=== PATIENT | female | born 1980 | race Two or more races ===

== ENCOUNTER → 2018-11-17 | Outpatient (CLI) | payer OTHER | END | disposition home or self-care (01) | LOC: RAD 501 09:48 | DX: M54.2 Cervicalgia (principal) ==

== ENCOUNTER 2021-04-10 15:01 | Outpatient (CLI) | payer OTHER | END 2021-04-10 15:10 | disposition home or self-care (01) | LOC: SONOGRAMA 15:01 | PROVIDERS: ATTEND Internal Medicine Endocrinology, Diabetes & Metabolism | DX: E04.1 Nontoxic single thyroid nodule (principal) ==

== ENCOUNTER 2021-06-12 10:30 | Outpatient (CLI) | payer OTHER | END 2021-06-12 10:33 | disposition home or self-care (01) | LOC: MAMO-SONO 10:30 | PROVIDERS: ATTEND Specialist | DX: N60.11 Diffuse cystic mastopathy of right breast (principal); N60.12 Diffuse cystic mastopathy of left breast; Z12.31 Encounter for screening mammogram for malignant neoplasm of breast ==

== ENCOUNTER 2022-02-17 14:40 | Outpatient (CLI) | payer OTHER | END 2022-02-17 14:52 | disposition home or self-care (01) | LOC: RAD 14:40 | PROVIDERS: ATTEND Physical Medicine & Rehabilitation | DX: M54.50 Low back pain, unspecified (principal); M54.16 Radiculopathy, lumbar region ==

== ENCOUNTER 2023-05-20 10:23 | Outpatient (CLI) | payer OTHER | END 2023-05-20 10:39 | disposition home or self-care (01) | LOC: MAMO-SONO 10:23 | PROVIDERS: ATTEND Specialist | DX: N60.11 Diffuse cystic mastopathy of right breast (principal); N60.12 Diffuse cystic mastopathy of left breast; Z12.31 Encounter for screening mammogram for malignant neoplasm of breast ==

== ENCOUNTER 2024-06-22 08:18 | Outpatient (CLI) | payer OTHER | END 2024-06-22 08:26 | disposition home or self-care (01) | LOC: MAMO-SONO 08:18 | PROVIDERS: ATTEND Specialist | DX: E04.1 Nontoxic single thyroid nodule (principal); N60.11 Diffuse cystic mastopathy of right breast; N60.12 Diffuse cystic mastopathy of left breast ==

== ENCOUNTER 2024-08-12 08:47 | Outpatient (CLI) | payer OTHER | END 2024-08-12 08:55 | disposition home or self-care (01) | LOC: RAD 08:47 | PROVIDERS: ATTEND Physical Medicine & Rehabilitation | DX: M25.552 Pain in left hip (principal); M70.51 Other bursitis of knee, right knee ==